=== PATIENT | female | born 1945 | race Caucasian/White ===

== ENCOUNTER → 2019-04-07 13:22 | Outpatient (BNVA) | payer MEDICARE, OTHER, SELFPAY | PROVIDERS: PCP Nurse Practitioner Family; Visit Provider Nurse Practitioner Family | DX: E11.9 Type 2 diabetes mellitus without complications (principal); E55.9 Vitamin D deficiency, unspecified; I48.91 Unspecified atrial fibrillation | CPT/HCPCS: 80053; 80061; 82306; 83036; 85025 ==

== ENCOUNTER 2019-04-14 09:18 | Day surgery (SDC) | payer MEDICARE, OTHER, SELFPAY ==
[2019-04-13 08:37] VITALS: BMI 46.4
--- NOTE | 2019-04-14 09:08 | W.PM.OPSUD ---
Surgery/Procedure H&P Update DATE OF PROCEDURE: April 14, 2019 DATE H&P PERFORMED: 04/06/19 PLANNED PROCEDURE: Operation Date: 04/14/19 11:00 Proposed Procedures p Colonoscopy Z12.11 G0121(Not Applicable) - Virgil Kunz MD
--- NOTE | 2019-04-14 09:54 | ANES.PREANE2 ---
Pre-Anesthetic Assessment Pre-Anesthetic Assessment: Height/Weight: Height 1.57 m Weight 115.212 kg Preop Diagnosis: h/o colon polyps Proposed Procedure: Operation Date: 04/14/19 11:00 Proposed Procedures p Colonoscopy Z12.11 G0121(Not Applicable) - Virgil Kunz MD Last Intake: 19:00 Exam: Pre-Anes Outpt Exam: alert, oriented x 3, clear to auscultation bilaterally and regular rate & rhythm Airway: Submandibular: WNL Cervical ROM: Other MP: 3 Dentition: Chipped and Caps Pulmonary: Pulmonary: Asthma and Sleep apnea Comments: rx'd x 10y CV/HEM: CV/HEM: Afib Comments: fib rs'd x 2y : Comments: s/p single donor kidney to son overactive bladder Metabolic: Metabolic: DM Comments: rx'd x 2y, nrornalyy 95-110 Anesthetic Plan: ASA status: 3 Anesthesia: MAC PFSH Anesthesia PFSH: Medical History (Updated 04/07/19 @ 09:21 by BEN Solorio) Atrial fibrillation Diabetes mellitus GERD (gastroesophageal reflux disease) Social History (Updated 04/06/19 @ 11:28 by KAYLEIGH Pate) Smoking and tobacco status: never smoked Alcohol intake: current History of recent travel: No Data Anesthesia Cardiac Studies: No Data to Display
[2019-04-14 10:22] VITALS: BP 152/109; PULSE 101; RESP 18; TEMP 36.3; O2SAT 98
[2019-04-14] MEDS: sodium chloride 0.9% 1,000 ML 30 ML (10:32)
[2019-04-14 10:35] LABS: Glucose Point of Care 94 mg/dL (70-110)
[2019-04-14 12:01] VITALS: BP 137/113; PULSE 98; RESP 16; TEMP 36.3; O2SAT 95
[2019-04-14 12:16] VITALS: BP 134/90; PULSE 88; RESP 18; TEMP 36.2; O2SAT 97
== END 2019-04-14 12:40 | disposition home or self-care (01) ==
PROVIDERS: PCP Nurse Practitioner Family; Visit Provider Internal Medicine
PROC: 0DJD8ZZ Inspection of Lower Intestinal Tract, Via Natural or Artificial Opening Endoscopic (ICD-10-PCS; CPT 45378; principal; 2019-04-14 11:00)
DX: Z12.11 Encounter for screening for malignant neoplasm of colon (principal); Z86.010 Personal history of colon polyps; J45.909 Unspecified asthma, uncomplicated; G47.30 Sleep apnea, unspecified; I48.91 Unspecified atrial fibrillation; E11.9 Type 2 diabetes mellitus without complications; K57.30 Diverticulosis of large intestine without perforation or abscess without bleeding; Z79.01 Long term (current) use of anticoagulants
CPT/HCPCS: 12345; 36416; 45378; 82962; J2704; J7030

== ENCOUNTER → 2019-11-24 08:27 | Outpatient (BNVA) | payer MEDICARE, OTHER, SELFPAY | PROVIDERS: PCP Nurse Practitioner Family; Visit Provider Nurse Practitioner Family | DX: E11.9 Type 2 diabetes mellitus without complications (principal) | CPT/HCPCS: 80053; 80061; 83036; 85025 ==

== ENCOUNTER 2020-03-06 09:28 | Outpatient (CLI) | payer MEDICARE, OTHER, SELFPAY ==
--- NOTE | 2020-03-06 09:30 | CT_ITS ---
WS: [id number] CT CHEST TECHNIQUE: Contrast enhanced CT of the chest with coronal and sagittal reformatted images. CLINICAL INFORMATION: R91.1 - Solitary pulmonary nodule COMPARISON: CT chest 9 18,018 DLP: 1011.[address] scans at [facility] use at least one of these dose optimization techniques: automat ed exposure control; mA and/or kV adjustment per patient size (includes targeted exams where dose is matched to clinical indication); or iterative reconstruction. FINDINGS: Calcified granuloma right upper lobe. Mild chronic emphysematous changes. No acute pulmonary infiltra hong. No consolidation or pleural fluid. Normal caliber abdominal aorta. Proximal main pulmonary arter ies are normal. No mediastinal or hilar lymphadenopathy. No axillary lymphadenopathy. Partially visualized right thyroid mass measuring 4.4 x 3.6 CM. Mild mass effect on the trachea at th oracic inlet. Diffuse fatty infiltration of the liver. Small esophageal hiatal hernia. Adrenal glands are normal. CT/CT chest w con* [id number] IMPRESSION: 1. Both lungs are well aerated. No acute pulmonary infiltrates. 2. No mediastinal or hilar lymphadenopathy. 3. Partially visualized right thyroid mass measuring 4.4 x 3.6 CM. This appear s similar in appearance to 2018 4. Mild diffuse fatty infiltration of the liver. 5. Small esophageal hiatal hernia.
[2020-03-06 10:06] LABS: Blood Urea Nitrogen 11 mg/dL (8-23)
[2020-03-06] MEDS: iodixanol 320 mg/mL 100mL Btl IV (10:17)
== END 2020-03-06 09:29 | disposition home or self-care (01) ==
LOC: RADWPI 09:30
PROVIDERS: PCP Nurse Practitioner Family; Visit Provider Nurse Practitioner Family
DX: R91.1 Solitary pulmonary nodule (principal); K44.9 Diaphragmatic hernia without obstruction or gangrene; K76.0 Fatty (change of) liver, not elsewhere classified
CPT/HCPCS: 71260; 82565; 84520; Q9967

== ENCOUNTER → 2020-04-23 12:05 | Outpatient (BNVA) | payer MEDICARE, OTHER, SELFPAY | PROVIDERS: PCP Nurse Practitioner Family; Visit Provider Nurse Practitioner Family | DX: M25.561 Pain in right knee (principal); M25.562 Pain in left knee; M11.262 Other chondrocalcinosis, left knee | CPT/HCPCS: 73562 ==

== ENCOUNTER → 2020-05-31 08:36 | Outpatient (BNVA) | payer MEDICARE, OTHER, SELFPAY | PROVIDERS: PCP Nurse Practitioner Family; Visit Provider Nurse Practitioner Family | DX: E11.9 Type 2 diabetes mellitus without complications (principal); E55.9 Vitamin D deficiency, unspecified | CPT/HCPCS: 80053; 80061; 82043; 82306; 83036; 84443; 85025 ==

== ENCOUNTER → 2020-12-23 08:35 | Outpatient (BNVA) | payer MEDICARE, OTHER, SELFPAY | PROVIDERS: PCP Nurse Practitioner Family; Visit Provider Family Medicine | DX: E11.9 Type 2 diabetes mellitus without complications (principal) | CPT/HCPCS: 80053; 80061; 83036; 85025 ==

== ENCOUNTER → 2021-02-24 00:01 | Outpatient (BNVA) | payer MEDICARE, OTHER, SELFPAY | PROVIDERS: PCP Nurse Practitioner Family; Visit Provider Nurse Practitioner Family | DX: Z20.822 Contact with and (suspected) exposure to COVID-19 (principal) | CPT/HCPCS: 87635 ==

== ENCOUNTER 2021-02-27 11:38 | Outpatient (CLI) | payer MEDICARE, OTHER, SELFPAY ==
[2021-02-27 11:50] VITALS: BP 111/79; PULSE 87; RESP 18; TEMP 36.6; O2SAT 97; BMI 47.8
[2021-02-27 13:26] VITALS: BP 139/89; PULSE 78; RESP 18; TEMP 36.6; O2SAT 96
== END 2021-02-27 11:39 | disposition home or self-care (01) ==
LOC: OPS 11:48
PROVIDERS: PCP Nurse Practitioner Family; Visit Provider Nurse Practitioner Family
DX: U07.1 COVID-19 (principal)
CPT/HCPCS: 96365

== ENCOUNTER → 2021-09-30 08:23 | Outpatient (BNVA) | payer MEDICARE, OTHER, SELFPAY | PROVIDERS: PCP Nurse Practitioner Family; Visit Provider Nurse Practitioner Family | DX: E11.9 Type 2 diabetes mellitus without complications (principal); E55.9 Vitamin D deficiency, unspecified; I48.0 Paroxysmal atrial fibrillation; K21.9 Gastro-esophageal reflux disease without esophagitis | CPT/HCPCS: 80053; 80061; 82043; 82306; 83036; 84443; 85025 ==

== ENCOUNTER → 2021-12-01 10:44 | Outpatient (BNVA) | payer MEDICARE, OTHER, SELFPAY | PROVIDERS: PCP Nurse Practitioner Family; Visit Provider Family Medicine | DX: I48.0 Paroxysmal atrial fibrillation (principal) | CPT/HCPCS: 85610 ==

== ENCOUNTER → 2021-12-03 15:58 | Outpatient (BNVA) | payer MEDICARE, OTHER, SELFPAY | PROVIDERS: PCP Nurse Practitioner Family; Visit Provider Nurse Practitioner Family | DX: I48.0 Paroxysmal atrial fibrillation (principal) | CPT/HCPCS: 85610 ==

== ENCOUNTER → 2021-12-09 11:41 | Outpatient (BNVA) | payer MEDICARE, OTHER, SELFPAY | PROVIDERS: PCP Nurse Practitioner Family; Visit Provider Nurse Practitioner Family | DX: I48.91 Unspecified atrial fibrillation (principal) | CPT/HCPCS: 85610 ==

== ENCOUNTER → 2021-12-12 12:41 | Outpatient (BNVA) | payer MEDICARE, OTHER, SELFPAY | PROVIDERS: PCP Nurse Practitioner Family; Visit Provider Nurse Practitioner Family | DX: I48.0 Paroxysmal atrial fibrillation (principal) | CPT/HCPCS: 85610 ==

== ENCOUNTER → 2022-02-20 11:44 | Outpatient (BNVA) | payer MEDICARE, OTHER, SELFPAY | PROVIDERS: PCP Nurse Practitioner Family; Visit Provider Nurse Practitioner Family | DX: I48.0 Paroxysmal atrial fibrillation (principal) | CPT/HCPCS: 85610 ==

== ENCOUNTER → 2022-03-06 10:11 | Outpatient (BNVA) | payer MEDICARE, OTHER, SELFPAY | PROVIDERS: PCP Nurse Practitioner Family; Visit Provider Nurse Practitioner Family | DX: I48.0 Paroxysmal atrial fibrillation (principal) | CPT/HCPCS: 85610 ==

== ENCOUNTER → 2022-03-23 11:08 | Outpatient (BNVA) | payer MEDICARE, SELFPAY | PROVIDERS: PCP Nurse Practitioner Family; Visit Provider Nurse Practitioner Family | DX: I48.0 Paroxysmal atrial fibrillation (principal) | CPT/HCPCS: 85610 ==

== ENCOUNTER → 2022-03-24 08:24 | Outpatient (BNVA) | payer MEDICARE, SELFPAY | PROVIDERS: PCP Nurse Practitioner Family; Visit Provider Nurse Practitioner Family | DX: E11.9 Type 2 diabetes mellitus without complications (principal); E55.9 Vitamin D deficiency, unspecified | CPT/HCPCS: 80053; 80061; 82306; 83036; 84443; 85025 ==

== ENCOUNTER → 2022-04-21 09:48 | Outpatient (BNVA) | payer MEDICARE, SELFPAY | PROVIDERS: PCP Nurse Practitioner Family; Visit Provider Nurse Practitioner Family | DX: I48.0 Paroxysmal atrial fibrillation (principal) | CPT/HCPCS: 85610 ==

== ENCOUNTER → 2022-05-22 10:15 | Outpatient (BNVA) | payer MEDICARE, SELFPAY | PROVIDERS: PCP Nurse Practitioner Family; Visit Provider Nurse Practitioner Family | DX: I48.0 Paroxysmal atrial fibrillation (principal) | CPT/HCPCS: 85610 ==

== ENCOUNTER 2022-06-10 08:12 | Emergency (ER) | payer MEDICARE, SELFPAY ==
[2022-06-10 08:13] VITALS: BP 112/73; PULSE 84; RESP 16; TEMP 36.4; O2SAT 98
--- NOTE | 2022-06-10 08:18 | ECG_ITS ---
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 Measurements Intervals [place] Rate: 80 P: 0 NV: 0 QRS: 34 QRSD: 97 T: 69 QT: 373 QTc: 430 Interpretive Statements ATRIAL FIBRILLATION ABNORMAL RHYTHM ECG Compared to ECG 11/02/2017 08:08:51 No significant changes Electronically Signed On 06-10-2022 10:59:55 CDT by Sven Adan M.D. [id number]
--- NOTE | 2022-06-10 08:18 | XR_ITS ---
WS: [id number] Exam: XR chest 1V portable [id number] Date/Time of Exam: 06/10/2022 8:20 AM Reason For Exam: chest pain Comparison 11/02/2017. Findings: The lungs are clear and fully expanded. Costophrenic angles are sharp. No infiltrates. Bronchovascula r relief appears normal. Cardiac silhouette is unremarkable. Bony elements are intact. XR/XR chest 1V portable [id number] IMPRESSION: Unremarkable chest radiograph.
--- NOTE | 2022-06-10 08:18 | W.ED.CHESTPA ---
HPI - Chest Pain General: Chief Complaint: Chest Pain Stated Complaint: chest pain Time Seen by Provider: 06/10/22 08:14 History of Present Illness: Patient presents to the ER by EMS with reports of having right-sided chest pain since about 715. Patient was sitting having breakfast when this right-sided lower chest upper abdominal pain radiated up into her chest and down her right arm and also up into her neck. Patient took 3 nitro with no relief. Patient has a history of A-fib. She is currently on warfarin. MD complaint: chest pain Pertinent past history: other (Known A-fib) Onset (ago): hour(s) (About 1 hour) Prior episodes: Yes Onset: during rest Pain location: right chest Severity: moderate Quality: aching and sharp Relieving factors: nothing Exacerbating factors: nothing Associated symptoms: Deny abdominal pain, dyspnea, fever(s), nausea, palpitations or vomiting Treatment prior to arrival: nitroglycerin and other (Zofran per EMS) Review of Systems General: Reports: 10 or more systems reviewed and unremarkable except in HPI and below Const: Denies: fever(s) or chills Eyes: Denies: change in vision or photophobia ENMT: Denies: throat pain or odynophagia Card: Reports: chest pain and irregular heart rhythm; Denies: palpitations Resp: Denies: dyspnea, productive cough or non-productive cough GI: Denies: abdominal pain, nausea or vomiting : Denies: flank pain, difficulty voiding or dysuria PFS ED PFSH: Medical History Atrial fibrillation Diabetes mellitus GERD (gastroesophageal reflux disease) Hiatal hernia History of colon polyps Surgical History History of colonoscopy History of esophagogastroduodenoscopy (EGD) History of hysterectomy Family History Mother Cancer lung cancer Atrial fibrillation Brother Cancer lung cancer Social History Smoking and tobacco status: never smoked Second hand smoke exposure: No Alcohol intake: current Alcohol intake frequency: holidays/special occasions only Alcohol type: wine Last alcohol use date: 11/06/21 Substance/Drug Use: never Lives independently: Yes Household members: children Marital status: Single service: No 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 Current gender identity: Female Special darinel needs: No Agree to transfusion: Yes Physical Exam Const: COMMON NORMALS: no acute distress, average body habitus, patient oriented x3, no limitations, healthy appearing, alert and well nourished HENMT: COMMON NORMALS: normocephalic, atraumatic, hearing grossly normal bilaterally, external ears normal and moist oral mucous membranes HEAD & SCALP: normocephalic and atraumatic EXTERNAL EAR: Yes external ears normal Eye: COMMON NORMALS: Equal, round and reactive pupils present, EOMs intact bilaterally, conjunctivae normal and no scleral icterus CONJUNCTIVA: Yes conjunctivae normal PUPIL: Yes Equal, round and reactive pupils present Neck/C-Spine: COMMON NORMALS: full ROM, no lymphadenopathy, supple, no meningeal signs, no JVD and Thyroid normal THYROID: Thyroid normal Chest: COMMONS NORMALS: normal inspection of the chest and normal palpation of entire chest wall Resp: COMMON NORMALS: normal respiratory effort, No retractions, No use of accessory muscles and clear to auscultation bilaterally AUSCULTATION: clear to auscultation bilaterally Cardio: COMMON NORMALS: no JVD, regular rate, regular rhythm, S1 normal heart sound present and S2 normal heart sound present RATE: regular rate RHYTHM: regular rhythm HEART SOUNDS: S1 normal heart sound present and S2 normal heart sound present GI: COMMON NORMALS: Normal to inspection, nondistended, normoactive bowel sounds present, Soft to palpation, non-tender, No hepatosplenomegaly present and no masses PALPATION: Yes Soft to palpation and Yes No hepatosplenomegaly present Neuro: COMMON NORMALS: patient oriented x3 SENSORIUM/ORIENTATION: Yes alert MENINGEAL SIGNS: Yes no meningeal signs Course Vital Signs: Vital signs: Vital Signs Temperature 97.5 F L 06/10/22 08:13 Pulse Rate 69 06/10/22 09:18 Respiratory Rate 16 06/10/22 09:18 Blood Pressure 121/67 06/10/22 09:18 Pulse Oximetry 96 06/10/22 09:18 Oxygen Delivery Me thod Room Air 06/10/22 09:18 MDM - Chest Pain Medical Decision Making Patient presents to the ER with complaints of right-sided chest pain that radiated down her arm into her back. Patient took 3 nitro without relief. Regular cardiac work-up was obtained. EKG showed atrial fibrillation which is known. First and second troponins were negative with a delta of -0.71. 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 Differential Diagnosis Unlikely acute massive pulmonary embolism, acute respiratory failure, acute myocardial infarction, cardiac arrest or sudden cardiac Medical Records I reviewed the patient's medical records. Lab Data I reviewed the patient's lab results. 06/10/22 08:22 06/10/22 08:22 Radiology Impressions Chest X-Ray 06/10/22 08:18 IMPRESSION: Unremarkable chest radiograph. Laboratory Results WBC 5.8 10^3/uL (4.0-10.0) 06/10/22 08:22 RBC 4.76 10^6/uL (4.1-5.3) 06/10/22 08:22 Hgb 12.5 g/dL (11.5-15.3) 06/10/22 08:22 Hct 39.6 % (37.0-47.0) 06/10/22 08:22 MCV 83.2 fl (81-99) 06/10/22 08:22 MCH 26.3 pg (28.0-34.0) L 06/10/22 08:22 MCHC 31.6 g/dL (30.0-36.0) 06/10/22 08:22 RDW 14.1 % (12.1-15.1) 06/10/22 08:22 Plt Count 213 10^3/cmm (130-400) 06/10/22 08:22 MPV 9.7 fL (7.4-10.4) 06/10/22 08:22 Neut % (Auto) 61.9 % 06/10/22 08:22 Lymph % (Auto) 27.7 % 06/10/22 08:22 [place] % (Auto) 6.3 % 06/10/22 08:22 Eos % (Auto) 3.3 % 06/10/22 08:22 Baso % (Auto) 0.5 % 06/10/22 08:22 Neut # (Auto) 3.56 10^3/uL (1.8-7.7) 06/10/22 08:22 Lymph # (Auto) 1.6 10^3/uL (0.8-4.8) 06/10/22 08:22 [place] # (Auto) 0.4 10^3/uL (0.2-0.9) 06/10/22 08:22 Eos # (Auto) 0.2 10^3/uL (0.0-0.8) 06/10/22 08:22 Baso # (Auto) 0.0 10^3/uL (0.0-0.1) 06/10/22 08:22 Nucleated RBC % (auto) 0 % 06/10/22 08:22 Nucleated RBCs # 0.0 /100WBC 06/10/22 08:22 PT 27.70 SECONDS (12.1-14.9) H 06/10/22 08:22 INR 2.47 (0.8-1.2) H 06/10/22 08:22 Sodium 136 mmol/L (136-145) 06/10/22 08:22 Potassium 4.0 mmol/L (3.5-5.1) 06/10/22 08:22 Chloride 97 mmol/L (98-107) L 06/10/22 08:22 Carbon Dioxide 27 mmol/L (22-29) 06/10/22 08:22 Anion Gap 16.0 (5-19) 06/10/22 08:22 BUN 16 mg/dL (8-23) 06/10/22 08:22 Creatinine 0.7 mg/dL (0.5-0.9) 06/10/22 08:22 GFR Calculation Not Reportable 06/10/22 08:22 Glucose 240 mg/dL (65-115) H 06/10/22 08:22 Calculated Osmolality 291 mOsm/kg (285-295) 06/10/22 08:22 Calcium 9.0 mg/dL (8.5-10.5) 06/10/22 08:22 Total Bilirubin 0.3 mg/dL (0.15-1.2) 06/10/22 08:22 AST 14 U/L (0-32) 06/10/22 08:22 ALT 14 U/L (0-33) 06/10/22 08:22 Alkaline Phosphatase 80 U/L (35-105) 06/10/22 08:22 Troponin T Baseline 11 ng/L (0-10) H 06/10/22 08:22 Troponin T 120 Minute 10.29 ng/L (0-10) H 06/10/22 10:32 Delta Troponin T -0.71 ABS# (0-10) L 06/10/22 10:32 Total Protein 6.7 g/dL (6.6-8.7) 06/10/22 08:22 Albumin 3.9 g/dL (3.5-5.2) 06/10/22 08:22 Globulin 2.8 g/dL (1.3-4.6) 06/10/22 08:22 Urine Color Yellow (Yellow) 06/10/22 09:21 Urine Appearance Clear (CLEAR) 06/10/22 09:21 Urine pH 7 (5-7) 06/10/22 09:21 Ur Specific [place] 1.015 (1.005-1.030) 06/10/22 09:21 Urine Protein Neg (Negative) 06/10/22 09:21 Urine Glucose (UA) Norm (Normal) 06/10/22 09:21 Urine Ketones Negative (Negative) 06/10/22 09:21 Urine Blood Neg (Negative) 06/10/22 09:21 Urine Nitrate Negative (Negative) 06/10/22 09:21 Urine Bilirubin Neg (Negative) 06/10/22 09:21 Urine Urobilinogen Norm mg/dL (Negative) 06/10/22 09:21 Ur Leukocyte Esterase Negative (Negative) 06/10/22 09:21 EKG Data EKG 1: I personally reviewed and interpreted this EKG as follows: EKG interpretation date: 06/10/22 EKG interpretation time: 08:20 Prior EKG tracings: not available for review Interpretation: EKG showed atrial fibrillation with ventricular rate 80 bpm, QRS of 97, QTc of 408, no ST-T wave changes. EKG 2: I personally reviewed and interpreted this EKG as follows: EKG interpretation date: 06/10/22 EKG interpretation time: 10:20 Prior EKG tracings: available for review Interpretation: EKG showed atrial fibrillation pattern with ventricular rate of 74 bpm, QRS duration 90, QTc 427, no ST-T wave changes Discharge Plan Discharge Patient Disposition: Home Clinical Impression: Atypical chest pain Atrial fibrillation Qualifiers: Atrial fibrillation type: longstanding persistent Qualified Code(s): I48.11 - Longstanding persistent atrial fibrillation Condition: Stable Prescriptions: No Action nitroglycerin [Nitrostat] 0.4 mg tablet, sublingual 0.4 mg SUBLINGUAL Q5M PRN (Reason: Chest Pain) Qty: 20 2RF Rx Instructions: do not exceed 3 doses warfarin 2 mg tablet See Rx Instructions .ROUTE .COMPLEX Qty: 90 1RF Dose Instruction: TAKE THREE TABLETS BY MOUTH ON WEDNESDAY, WEDNESDAY, & wednesday. take 5mg ON ALL other DAYS Rx Instructions: TAKE THREE TABLETS BY MOUTH ON WEDNESDAY, WEDNESDAY, & WEDNESDAY. 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
[2022-06-10 08:41] LABS: Basophils % 0.5 %; Eosinophils # 0.2 10^3/uL (0.0-0.8); Eosinophils % 3.3 %; Hematocrit 39.6 % (37.0-47.0); Hemoglobin 12.5 g/dL (11.5-15.3); Lymphocytes # 1.6 10^3/uL (0.8-4.8); Lymphocytes % 27.7 %; Mean Corpuscular HGB Conc 31.6 g/dL (30.0-36.0); Mean Corpuscular Hemoglobin 26.3 pg (28.0-34.0); Mean Corpuscular Volume 83.2 fl (81-99); Mean Platelet Volume 9.7 fL (7.4-10.4); Monocytes # 0.4 10^3/uL (0.2-0.9); Monocytes % 6.3 %; Neutrophils # 3.56 10^3/uL (1.8-7.7); Neutrophils % 61.9 %; Nucleated Red Blood Cells % 0 %; Platelet Count 213 10^3/cmm (130-400); Red Blood Count 4.76 10^6/uL (4.1-5.3); Red Cell Distribution Width 14.1 % (12.1-15.1); White Blood Count 5.8 10^3/uL (4.0-10.0)
[2022-06-10 08:55] LABS: INR 2.47 (0.8-1.2)
[2022-06-10 09:18] VITALS: BP 121/67; PULSE 69; RESP 16; O2SAT 96
[2022-06-10 09:30] VITALS: BP 105/70; PULSE 68; RESP 15; O2SAT 95
[2022-06-10 09:41] LABS: Add Urine Microscopic? NO; Charge for UA Resulting for Rev
[2022-06-10 09:53] LABS: Bilirubin Urine Neg (Negative); Blood Urine Neg (Negative); Glucose Urine UA Norm (Normal); Ketones Urine Negative (Negative); Leukocyte Esterase Urine Negative (Negative); Nitrate Urine Negative (Negative); Protein Urine Neg (Negative); Specific Gravity, Urine 1.015 (1.005-1.030); Urine Appearance Clear (CLEAR); Urine Color Yellow (Yellow); Urobilinogen Urine Norm (Negative); pH Urine 7 (5-7)
[2022-06-10 10:00] VITALS: BP 115/72; PULSE 78; RESP 16; O2SAT 94
--- NOTE | 2022-06-10 10:20 | ECG_ITS ---
[facility] Test Date: 2022-06-10 Pat Name: Susan Torres Department: Room: Gender: Female Social Work Associate: : 1945 Requested By: Jose Seo Order Number: [id number] Nellie MD: Sven Adan M.D. Measurements Intervals [place] Rate: 74 P: 0 MS: 0 QRS: 18 QRSD: 90 T: 68 QT: 400 QTc: 445 Interpretive Statements ATRIAL FIBRILLATION Compared to ECG 11/02/2017 08:08:51 No significant changes Electronically Signed On 06-10-2022 11:02:29 CDT by Sven Adan M.D. [id number]
[2022-06-10 10:30] VITALS: PULSE 64; RESP 12; O2SAT 95
[2022-06-10 10:39] LABS: Alanine Aminotransferase 14 U/L (0-33); Albumin Level 3.9 g/dL (3.5-5.2); Alkaline Phosphatase 80 U/L (35-105); Aspartate Amino Transferase 14 U/L (0-32); Blood Urea Nitrogen 16 mg/dL (8-23); Carbon Dioxide 27 mmol/L (22-29); Chloride 97 mmol/L (98-107); Creatinine Clr Calc Pharmacy 71.3993; Globulin 2.8 g/dL (1.3-4.6); Glucose 240 mg/dL (65-115); Osmolality Calculated 291 mOsm/kg (285-295); Sodium 136 mmol/L (136-145); Total Bilirubin 0.3 mg/dL (0.15-1.2); Total Protein 6.7 g/dL (6.6-8.7)
[2022-06-10 10:41] LABS: Troponin(5th) Baseline 11 ng/L (0-10)
[2022-06-10 11:05] LABS: Troponin 5 2HR 10.29 ng/L (0-10)
[2022-06-10 11:08] LABS: Troponin 5 2HR Delta -0.71 ABS# (0-10)
[2022-06-10 13:00] VITALS: PULSE 64; RESP 12; O2SAT 95
== END 2022-06-10 12:22 | disposition home or self-care (01) ==
PROVIDERS: Emergency Provider Emergency Medicine; PCP Nurse Practitioner Family
DX: R07.89 Other chest pain (principal); I48.11 Longstanding persistent atrial fibrillation; Z79.01 Long term (current) use of anticoagulants; E11.9 Type 2 diabetes mellitus without complications
CPT/HCPCS: 36415; 71045; 80053; 81003; 84484; 85025; 85610; 93005; 99285

== ENCOUNTER → 2022-07-30 15:48 | Outpatient (BNVA) | payer MEDICARE, SELFPAY | PROVIDERS: PCP Nurse Practitioner Family; Visit Provider Nurse Practitioner Family | DX: I48.11 Longstanding persistent atrial fibrillation (principal) | CPT/HCPCS: 85610 ==

== ENCOUNTER → 2022-08-24 11:04 | Outpatient (BNVA) | payer MEDICARE, SELFPAY | PROVIDERS: PCP Nurse Practitioner Family; Visit Provider Internal Medicine Cardiovascular Disease | DX: I48.11 Longstanding persistent atrial fibrillation (principal); M79.601 Pain in right arm; E11.9 Type 2 diabetes mellitus without complications; Z79.01 Long term (current) use of anticoagulants | CPT/HCPCS: 99204 ==

== ENCOUNTER 2022-09-01 13:19 | Outpatient (CLI) | payer MEDICARE, SELFPAY ==
--- NOTE | 2022-09-01 13:45 | USCV_ITS ---
[place], [place] Age: 76 Gender: F : 1945 Exam Date: 09/01/2022 14:03 Ordering Phys: Basia Rutherford MD ([email or web address]) Technologist: Brunilda Sosa Exam Location: [facility] [place] Indication: SOB BP: 120 / 72 HR: 79 Rhythm: Sinus Technical Quality: Adequate MEASUREMENTS (Male / Female) Normal Values 2D ECHO LV Diastolic Diameter PLAX 4.7 cm 4.2 - 5.9 / 3.9 - 5.3 cm LV Systolic Diameter PLAX 2.4 cm IVS Diastolic Thickness 0.8 cm 0.6 - 1.0 / 0.6 - 0.9 cm IVS Systolic Thickness 1.4 cm LVPW Diastolic Thickness 1.1 cm 0.6 - 1.0 / 0.6 - 0.9 cm LVPW Systolic Thickness 1.6 cm LVOT Diameter 2.0 cm LV Ejection Fraction 2D Teich 80.6 % LV Ejection Fraction MOD 2C 65.7 % LV Ejection Fraction 2C AL 67.1 % LA Diameter 4.0 cm LA Width 3.4 cm LA Height 6.3 cm RA Width 5.0 cm RA Height 4.9 cm Aorta at Sinotubular Diameter 2.9 cm IVC Diameter 1.9 cm M-MODE Aortic Annulus Diameter 2.2 cm LA Ao Ratio MM 2.0 MV E Point Septal Separation 0.7 cm DOPPLER AV Peak Velocity 123.0 cm/s LVOT Peak Velocity 111.0 cm/s AV Area Cont Eq vti 2.6 cm squared AV Area Cont Eq pk 2.8 cm squared MV Peak Velocity 123.0 cm/s MV Area PHT 4.4 cm squared Mitral E to A Ratio 6.4 MV E' Velocity 61.0 cm/s Mitral E to MV E' Ratio 7.7 Mitral E to LV E' Lateral Ratio 7.7 Mitral E to LV E' Septal Ratio 7.7 TR Peak Velocity 217.8 cm/s TR Peak Gradient 19.0 mmHg Right Atrial Pressure 5.0 mmHg Pulmonary Artery Systolic Pressu 24.0 mmHg PV Peak Velocity 78.0 cm/s RV Acceleration Time 0.1 s RV Ejection Time 0.4 s RV AcT/ET 0.3 FINDINGS Left Ventricle Normal left ventricular size and systolic function, EF 57 %. No regional wall motion abnormalities. Right Ventricle The right ventricle is normal in size and function. Right Atrium Mildly increased right atrial size. Left Atrium Mildly increased left atrial size. Mitral Valve Thickened mitral valve. Mild to moderate mitral valve regurgitation. Aortic Valve Thickened aortic valve. Trace aortic valve regurgitation. Tricuspid Valve Trace tricuspid valve regurgitation. Estimated pulmonary artery peak systolic pressure 24 mm of Hg Pulmonic Valve No pulmonary valve regurgitation. Trace pulmonary valve regurgitation. Pericardium Normal pericardium without effusion. Aorta Normal ascending aorta dimension. IVC Normal inferior vena cava. CONCLUSIONS Normal left ventricular size and systolic function, EF 57 %. No regional wall motion abnormalities. Mild biatrial enlargement Thickened mitral valve. Mild to moderate mitral valve regurgitation. Thickened aortic valve. Trace aortic valve regurgitation. Trace tricuspid valve regurgitation. Estimated pulmonary artery peak systolic pressure 24 mm of Hg. There is no pericardial effusion. There are no intracardiac masses. No similar previous studies are available for comparison Dr Basia Rutherford MD FAC (Electronically Signed) Final Date: 03 September 2022 09:48 S
== END 2022-09-01 13:20 | disposition home or self-care (01) ==
PROVIDERS: PCP Nurse Practitioner Family; Visit Provider Internal Medicine Cardiovascular Disease
DX: R06.09 Other forms of dyspnea (principal); I48.91 Unspecified atrial fibrillation; I34.0 Nonrheumatic mitral (valve) insufficiency; I34.89 Other nonrheumatic mitral valve disorders; I35.8 Other nonrheumatic aortic valve disorders
CPT/HCPCS: 93306

== ENCOUNTER → 2022-09-04 08:29 | Outpatient (BNVA) | payer MEDICARE, SELFPAY | PROVIDERS: PCP Nurse Practitioner Family; Visit Provider Nurse Practitioner Family | DX: E11.9 Type 2 diabetes mellitus without complications (principal); I48.91 Unspecified atrial fibrillation | CPT/HCPCS: 80053; 80061; 83036; 85025; 85610 ==

== ENCOUNTER → 2022-10-12 13:36 | Outpatient (BNVA) | payer MEDICARE, SELFPAY | PROVIDERS: PCP Nurse Practitioner Family; Visit Provider Nurse Practitioner Family | DX: I48.91 Unspecified atrial fibrillation (principal); M79.601 Pain in right arm | CPT/HCPCS: 85610 ==

== ENCOUNTER → 2022-11-11 08:11 | Outpatient (BNVA) | payer MEDICARE, SELFPAY | PROVIDERS: PCP Nurse Practitioner Family; Visit Provider Nurse Practitioner Family | DX: M79.601 Pain in right arm (principal) | CPT/HCPCS: 85610 ==

== ENCOUNTER 2022-11-21 11:36 | Emergency (ER) | payer MEDICARE, SELFPAY ==
--- NOTE | 2022-11-21 11:38 | XRR_ITS ---
PROCEDURE INFORMATION: Exam: XR Right Knee Exam date and time: 11/21/2022 11:50 AM Age: 76 years old Clinical indication: Injury or trauma; Other: Bilateral knee pain; Patient HX: Bilateral knee/left wrist pain post fall; Bruising and swelling to right knee TECHNIQUE: Imaging protocol: Radiologic exam of the right knee. Views: 3 views. Total images: 448 COMPARISON: No relevant prior studies available. FINDINGS: Bones/joints: Medial compartment degenerative changes are noted with joint space narrowing and osteophyte formation. Patellofemoral compartment osteophyte formation. Enthesophyte of the quadriceps tendon insertion site on the patella. No acute fracture nor subluxation. No osseous erosion nor periosteal reaction. Soft tissues: Normal. XR/XR knee RT 3V* [id number] IMPRESSION: No acute osseous pathology.
[2022-11-21 11:41] VITALS: BP 133/97; PULSE 89; RESP 16; TEMP 36.4; O2SAT 92
--- NOTE | 2022-11-21 11:47 | W.ED.EXTPRO ---
HPI - Extremity Problem General: Chief complaint: Extremity Injury, Lower Stated complaint: right knee pain Time Seen by Provider: 11/21/22 11:38 Source: patient Mode of arrival: ambulatory History of Present Illness: 76-year-old female who stumbled and fell about 30 minutes prior to arrival. She landed on her left knee on an outstretched hand she has a little bit of discomfort in her left wrist and hand and some in her right knee she has been able to walk without difficulty demonstrated walking to and from the bathroom in the department without any issues. She is on Coumadin for atrial fibrillation was last checked about 1 month ago and was therapeutic. She did not strike her head no loss conscious no other injuries MD Complaint: extremity pain and joint pain Onset (ago): minute(s) (30) Location: left (Wrist and hand) and right (Knee) Quality: aching Radiation: none Relieving factors: nothing Exacerbating factors: nothing Associated symptoms: Deny fever(s) Review of Systems Const: Denies: fever(s) or chills Resp: Denies: dyspnea GI: Denies: abdominal pain : Denies: dysuria Musc: Reports: joint pain; Denies: neck pain or back pain Skin/Breast: Denies: pruritus Neuro: Denies: headache(s) PFSH ED PFSH: Medical History Atrial fibrillation Diabetes mellitus GERD (gastroesophageal reflux disease) Hiatal hernia History of colon polyps Surgical History History of colonoscopy History of esophagogastroduodenoscopy (EGD) History of hysterectomy Family History Mother Cancer lung cancer Atrial fibrillation Brother Cancer lung cancer Social History Smoking and tobacco status: never smoked Second hand smoke exposure: No Alcohol intake: current Alcohol intake frequency: holidays/special occasions only Alcohol type: wine Last alcohol use date: 12/21/20 Substance/Drug Use: never Lives independently: Yes Household members: children Marital status: Single service: No 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 Current gender identity: Female Special darinel needs: No Agree to transfusion: Yes Physical Exam Const: COMMON NORMALS: no acute distress GENERAL APPEARANCE: cooperative and comfortable ORIENTATION/CONSCIOUSNESS: Yes awake, Yes oriented to person, Yes oriented to place and Yes oriented to time HENMT: COMMON NORMALS: normocephalic, atraumatic and hearing grossly normal bilaterally HEAD & SCALP: normocephalic and atraumatic Resp: COMMON NORMALS: normal respiratory effort, No retractions, No use of accessory muscles and clear to auscultation bilaterally AUSCULTATION: clear to auscultation bilaterally Cardio: COMMON NORMALS: regular rate, regular rhythm and No murmurs present (Cardio) RATE: regular rate RHYTHM: regular rhythm GI: COMMON NORMALS: Soft to palpation and No hepatosplenomegaly present AUSCULTATION: Yes normoactive bowel sounds PALPATION: Yes Soft to palpation, No Tenderness to palpation present (GI), No Guarding due to palpation present (GI) and Yes No hepatosplenomegaly present Extremity: COMMON NORMALS: normal to inspection, capillary refill normal, no clubbing, cyanosis or edema, no calf tenderness and no pedal edema Neuro: SENSORIUM/ORIENTATION: Yes oriented to person, Yes oriented to place and Yes oriented to time Skin: COMMON NORMALS: no rashes or lesions noted GENERAL SKIN EXAM: no rashes or lesions noted Course Vital Signs: Vital signs: Vital Signs Temperature 97.5 F L 11/21/22 11:41 Pulse Rate 74 11/21/22 12:41 Respiratory Rate 16 11/21/22 11:41 Blood Pressure 126/77 11/21/22 12:41 Pulse Oximetry 91 11/21/22 12:41 Oxygen Delivery Me thod Room Air 11/21/22 11:41 MDM - Extremity (Nontraumatic) Medical Decision Making X-rays unremarkable no acute fracture. Discharge patient home no change medications ice Tylenol as needed for discomfort follow-up as needed Medical Records I reviewed the patient's medical records. Lab Data I reviewed the patient's lab results. Radiology Impressions Knee X-Ray 11/21/22 11:54 IMPRESSION: No acute osseous pathology. Wrist X-Ray 11/21/22 11:54 IMPRESSION: No acute findings. Laboratory Results PT 25.60 SECONDS (12.1-14.9) H 11/21/22 12:25 INR 2.23 (0.8-1.2) H 11/21/22 12:25 All radiology interpretation(s) finalized by discharge Discharge Plan Discharge Patient Disposition: Home Clinical Impression: Bilateral knee pain, Fall Condition: Stable Prescriptions: No Action nitroglycerin [Nitrostat] 0.4 mg tablet, sublingual 0.4 mg SUBLINGUAL Q5M PRN (Reason: Chest Pain) Qty: 20 2RF Rx Instructions: do not exceed 3 doses (DME) md inr See Rx Instructions .Route .MEDSUPPLY Qty: 1 0RF Rx Instructions: As directed warfarin 2 mg tablet See Rx Instructions .ROUTE .COMPLEX Qty: 90 1RF Protocol: Dose Management Condition: Wednesday Dose/Route: 5 mg Instruction: 1 x 5 mg tablet Condition: Wednesday Dose/Route: 6 mg Instruction: 3 x 2 mg tablets Condition: Wednesday Dose/Route: 5 mg Instruction: 1 x 5 mg tablet Condition: Wednesday Dose/Route: 6 mg Instruction: 3 x 2 mg tablets Condition: Dose/Route: 5 mg Instruction: 1 x 5 mg tablet Condition: Wednesday Dose/Route: 6 mg Instruction: 3 x 2 mg tablets Condition: Wednesday Dose/Route: 5 mg Instruction: 1 x 5 mg tablet Protocol Text: Adjustment Start Date: Wednesday11/11/22 INR Value: 29.80 SECONDS INR Date: 11/11/22 Recheck Date: 12/11/22 Dose Instruction: TAKE THREE TABLETS BY MOUTH ON WEDNESDAY, WEDNESDAY, & WEDNESDAY. take 5mg ON , , SAT, SUN Rx Instructions: TAKE THREE TABLETS (6mg) BY MOUTH ON WEDNESDAY, WEDNESDAY, & WEDNESDAY. take 5mg ON , TH, SAT, SUN warfarin 5 mg tablet See Rx Instructions .ROUTE .COMPLEX Qty: 30 2RF Protocol: Dose Management Condition: Wednesday Dose/Route: 5 mg Instruction: 1 x 5 mg tablet Condition: Wednesday Dose/Route: 6 mg Instruction: 3 x 2 mg tablets Condition: Wednesday Dose/Route: 5 mg Instruction: 1 x 5 mg tablet Condition: Wednesday Dose/Route: 6 mg Instruction: 3 x 2 mg tablets Condition: Dose/Route: 5 mg Instruction: 1 x 5 mg tablet Condition: Wednesday Dose/Route: 6 mg Instruction: 3 x 2 mg tablets Condition: Wednesday Dose/Route: 5 mg Instruction: 1 x 5 mg tablet Protocol Text: Adjustment Start Date: Wednesday11/11/22 INR Value: 29.80 SECONDS INR Date: 11/11/22 Recheck Date: 12/11/22 Dose Instruction: TAKE ONE TABLET BY MOUTH ON tuesdays , ,saturdays, AND sundays. take 6mg ON ALL other DAYS. Rx Instructions: TAKE ONE TABLET BY MOUTH ON ,,WED, AND SUN-( TAKE 6MG ON WED,WED,AND WED) multivitamin Tablet 1 tab PO QAM Vitamin B-12 1,000 mcg Tablet 1,000 mcg PO QAM albuterol sulfate 90 mcg/actuation Hfa Aerosol Inhaler 2 puff INHALATION QID PRN (Reason: Shortness Of Breath) carvedilol 3.125 mg tablet 3.125 mg PO BID glipizide 2.5 mg tablet extended release 24hr 2.5 mg PO QAM Discharge Orders: Discharge ED (Routine); Ordered 11/21/22 Ordered By: Trey Valadez Referrals: Rosalina Munoz FNP [Primary Care Provider] - Discharge Diet: Usual diet Discharge Activity: Increase activity as tolerated Patient Instructions: Opioid Safety, Pain Management Coding Level of Care Code ED Sock Drier for Cleo Cabrera
--- NOTE | 2022-11-21 11:54 | XRR_ITS ---
PROCEDURE INFORMATION: Exam: XR Left Knee Exam date and time: 11/21/2022 11:59 AM Age: 76 years old Clinical indication: Injury or trauma; Other: Bilateral knee pain; Patient HX: Bilateral knee/left wrist pain post fall; Bruising and swelling to right knee TECHNIQUE: Imaging protocol: Radiologic exam of the left knee. Views: 3 views. Total images: 3 COMPARISON: CR XR knee LT 3V* [id number] 04/23/2020 12:11 PM FINDINGS: Bones/joints: Medial compartment degenerative changes are noted with joint space narrowing and osteophyte formation. No acute fracture nor subluxation. No osseous erosion nor periosteal reaction. Soft tissues: Normal. XR/XR knee LT 3V* [id number] IMPRESSION: No acute osseous pathology.
--- NOTE | 2022-11-21 11:54 | XRR_ITS ---
PROCEDURE INFORMATION: Exam: XR Left Wrist Exam date and time: 11/21/2022 12:05 PM Age: 76 years old Clinical indication: Patient HX: Bilateral knee/left wrist pain post fall; Bruising and swelling to right knee TECHNIQUE: Imaging protocol: Radiologic exam of the left wrist. Views: 3 or more views. Total images: 3 COMPARISON: No relevant prior studies available. FINDINGS: Bones/joints: Normal. Soft tissues: Normal. XR/XR wrist LT min 3V* [id number] IMPRESSION: No acute findings.
[2022-11-21 12:41] VITALS: BP 126/77; PULSE 74; O2SAT 91
[2022-11-21 12:42] LABS: INR 2.23 (0.8-1.2)
== END 2022-11-21 12:42 | disposition home or self-care (01) ==
PROVIDERS: Emergency Provider Family Medicine; PCP Nurse Practitioner Family
DX: M25.562 Pain in left knee (principal); M25.561 Pain in right knee; Z79.01 Long term (current) use of anticoagulants; Z79.84 Long term (current) use of oral hypoglycemic drugs; E11.9 Type 2 diabetes mellitus without complications
CPT/HCPCS: 36415; 73110; 73562; 85610; 99284

== ENCOUNTER → 2022-12-02 14:50 | Outpatient (BNVA) | payer MEDICARE, SELFPAY | PROVIDERS: PCP Nurse Practitioner Family; Visit Provider Nurse Practitioner Family | DX: E11.621 Type 2 diabetes mellitus with foot ulcer (principal); L97.509 Non-pressure chronic ulcer of other part of unspecified foot with unspecified severity | CPT/HCPCS: 83036 ==

== ENCOUNTER 2023-02-02 10:00 | Outpatient (CLI) | payer MEDICARE, SELFPAY ==
--- NOTE | 2023-02-02 10:00 | MM_ITS ---
WS: [id number] BILATERAL 3D TOMOSYNTHESIS DIGITAL SCREENING MAMMOGRAPHY WITH CAD CLINICAL INFORMATION: SCREENING HISTORY: Screening mammogram. No current complaints. COMPARISON: 2014 TECHNIQUE: Bilateral CC and MLO views. FINDINGS: Scattered fibroglandular densities bilaterally. No suspicious focal mass, asymmetry, calcifications, or architectural distortion. No evidence of malignancy. Biopsy clip LEFT breast. Incidental punctate calcifications. IMPRESSION: MM/[place] [id number] BI-RADS: 2-Benign FOLLOW UP: 1 Year Follow-up Recommend return to annual screening mammography.
== END 2023-02-02 10:01 | disposition home or self-care (01) ==
LOC: MOBLMAM 10:02
PROVIDERS: PCP Nurse Practitioner Family; Visit Provider Nurse Practitioner Family
DX: Z12.31 Encounter for screening mammogram for malignant neoplasm of breast (principal)
CPT/HCPCS: 77063; 77067

== ENCOUNTER → 2023-04-06 14:56 | Outpatient (BNVA) | payer MEDICARE, SELFPAY | PROVIDERS: PCP Nurse Practitioner Family; Visit Provider Nurse Practitioner Family | DX: E11.9 Type 2 diabetes mellitus without complications (principal); I48.11 Longstanding persistent atrial fibrillation; E55.9 Vitamin D deficiency, unspecified | CPT/HCPCS: 85610 ==

== ENCOUNTER → 2023-04-07 08:38 | Outpatient (BNVA) | payer MEDICARE, SELFPAY | PROVIDERS: PCP Nurse Practitioner Family; Visit Provider Nurse Practitioner Family | DX: E55.9 Vitamin D deficiency, unspecified (principal); E11.9 Type 2 diabetes mellitus without complications | CPT/HCPCS: 80053; 80061; 82306; 83036; 84443; 85025 ==

== ENCOUNTER → 2023-05-10 14:59 | Outpatient (BNVA) | payer MEDICARE, SELFPAY | PROVIDERS: PCP Nurse Practitioner Family; Visit Provider Nurse Practitioner Family | DX: M79.601 Pain in right arm (principal) | CPT/HCPCS: 85610 ==

== ENCOUNTER → 2023-06-09 14:41 | Outpatient (BNVA) | payer MEDICARE, SELFPAY | PROVIDERS: PCP Nurse Practitioner Family; Visit Provider Nurse Practitioner Family | DX: M79.601 Pain in right arm (principal); Z79.01 Long term (current) use of anticoagulants | CPT/HCPCS: 85610 ==

== ENCOUNTER → 2023-07-14 15:35 | Outpatient (BNVA) | payer MEDICARE, SELFPAY | PROVIDERS: PCP Nurse Practitioner Family; Visit Provider Nurse Practitioner Family | DX: M79.601 Pain in right arm (principal); Z79.01 Long term (current) use of anticoagulants | CPT/HCPCS: 85610 ==

== ENCOUNTER → 2023-08-17 13:48 | Outpatient (BNVA) | payer MEDICARE, SELFPAY | PROVIDERS: PCP Nurse Practitioner Family; Visit Provider Nurse Practitioner Family | DX: I48.11 Longstanding persistent atrial fibrillation (principal) | CPT/HCPCS: 85610 ==

== ENCOUNTER → 2023-08-24 13:35 | Outpatient (BNVA) | payer MEDICARE, SELFPAY | PROVIDERS: PCP Nurse Practitioner Family; Visit Provider Nurse Practitioner Family | DX: I48.11 Longstanding persistent atrial fibrillation (principal) | CPT/HCPCS: 85610 ==

== ENCOUNTER → 2023-08-31 13:43 | Outpatient (BNVA) | payer MEDICARE, SELFPAY | PROVIDERS: PCP Nurse Practitioner Family; Visit Provider Nurse Practitioner Family | DX: M79.601 Pain in right arm (principal); Z79.01 Long term (current) use of anticoagulants | CPT/HCPCS: 85610 ==

== ENCOUNTER → 2023-09-16 10:34 | Outpatient (BNVA) | payer MEDICARE, SELFPAY | PROVIDERS: PCP Nurse Practitioner Family; Visit Provider Nurse Practitioner Family | DX: I48.11 Longstanding persistent atrial fibrillation (principal) | CPT/HCPCS: 85610 ==

== ENCOUNTER → 2023-10-20 15:07 | Outpatient (BNVA) | payer MEDICARE, SELFPAY | PROVIDERS: PCP Nurse Practitioner Family; Visit Provider Family Medicine | DX: I48.11 Longstanding persistent atrial fibrillation (principal) | CPT/HCPCS: 85610 ==

== ENCOUNTER → 2023-11-08 17:22 | Outpatient (BNVA) | payer MEDICARE, SELFPAY | PROVIDERS: PCP Nurse Practitioner Family; Visit Provider Nurse Practitioner Family | DX: M79.601 Pain in right arm (principal) | CPT/HCPCS: 85610 ==

== ENCOUNTER → 2023-11-17 15:23 | Outpatient (BNVA) | payer MEDICARE, SELFPAY | PROVIDERS: PCP Nurse Practitioner Family; Visit Provider Nurse Practitioner Family | DX: M79.601 Pain in right arm (principal) | CPT/HCPCS: 85610 ==

== ENCOUNTER → 2023-12-07 08:24 | Outpatient (BNVA) | payer MEDICARE, SELFPAY | PROVIDERS: PCP Nurse Practitioner Family; Visit Provider Nurse Practitioner Family | DX: E11.9 Type 2 diabetes mellitus without complications (principal); E55.9 Vitamin D deficiency, unspecified; M79.601 Pain in right arm | CPT/HCPCS: 80053; 80061; 82306; 83036; 85025; 85610 ==

== ENCOUNTER → 2023-12-10 08:24 | Outpatient (BNVA) | payer MEDICARE, SELFPAY | PROVIDERS: PCP Nurse Practitioner Family; Visit Provider Nurse Practitioner Family | DX: E07.9 Disorder of thyroid, unspecified (principal) | CPT/HCPCS: 84443 ==

== ENCOUNTER 2023-12-28 15:22 | Outpatient (CLI) | payer MEDICARE, SELFPAY ==
--- NOTE | 2023-12-28 15:30 | XR_ITS ---
WS: [id number] SCREENING DEXA SCAN [facility] CLINICAL INFORMATION: Z78.0 - Asymptomatic menopausal state COMPARISON: None. FINDINGS: The L1-L4 bone mineral density measures 1.216 g/cm2. This corresponds to a T score score of 0.3 and Z score of 0.9. Left femoral neck bone mineral density measures 1.114 g/cm2. This corresponds to a T score of 0.8 and Z score of 2.0. Right femoral neck bone mineral density measures 1.142 g/cm2. This corresponds to a T score 1.1of and Z score of 2.2. Mean femoral neck bone mineral density measures 1.128 g/cm2. This corresponds to a T score of 1.0 and Z score of 2.1. XR/XR DEXA axial skeleton* [id number] IMPRESSION: Normal bone mineralization. Patient's FRAX calculated 10 year probability for major osteoporotic fracture i s 8.8% and osteoporotic hip fracture is 1.3%.
== END 2023-12-28 15:23 | disposition home or self-care (01) ==
LOC: RAD 15:24
PROVIDERS: PCP Nurse Practitioner Family; Visit Provider Nurse Practitioner Family
DX: Z13.820 Encounter for screening for osteoporosis (principal); Z78.0 Asymptomatic menopausal state
CPT/HCPCS: 77080

== ENCOUNTER 2024-01-07 10:20 | Outpatient (CLI) | payer MEDICARE, SELFPAY ==
--- NOTE | 2024-01-07 11:15 | USR_ITS ---
PROCEDURE INFORMATION: Exam: US Soft Tissue Head and Neck, Thyroid Exam date and time: 01/07/2024 11:45 AM Age: 78 years old Clinical indication: Condition or disease; Thyroid disorder; Other: Nontoxic single thyroid nodule; Additional info: E04.1 - nontoxic single thyroid nodule TECHNIQUE: Imaging protocol: Real-time ultrasound scan of the neck with image documentation. Exam focused on the thyroid. COMPARISON: US thyroid [id number] 11/22/2017 10:09 AM FINDINGS: The right lobe measures 5.2 x 2.0 x 2.8 cm. This measures slightly smaller than on the prior examination. The left lobe measures 3.8 x 1.2 x 1.9 cm. The isthmus measures 3 mm in thickness. Right lobe architecture is heterogeneous. No discrete nodule is seen in the right lobe Left lobe architecture is fairly homogeneous. Large coarse calcification is again seen in the left lobe. US/US thyroid [id number] IMPRESSION: The right thyroid lobe remains heterogeneous and measures slightly smaller than the prior exam. Stable course left thyroid lobe calcification. No significant changes.
== END 2024-01-07 10:21 | disposition home or self-care (01) ==
LOC: RAD 10:21
PROVIDERS: PCP Nurse Practitioner Family; Visit Provider Nurse Practitioner Family
DX: E07.89 Other specified disorders of thyroid (principal)
CPT/HCPCS: 76536

== ENCOUNTER → 2024-01-11 13:31 | Outpatient (BNVA) | payer MEDICARE, SELFPAY | PROVIDERS: PCP Nurse Practitioner Family; Visit Provider Nurse Practitioner Family | DX: M79.601 Pain in right arm (principal) | CPT/HCPCS: 85610 ==

== ENCOUNTER → 2024-04-10 14:09 | Outpatient (BNVA) | payer MEDICARE, SELFPAY | PROVIDERS: PCP Nurse Practitioner Family; Visit Provider Nurse Practitioner Family | DX: I48.91 Unspecified atrial fibrillation (principal); E11.9 Type 2 diabetes mellitus without complications | CPT/HCPCS: 83036; 85610 ==